=== PATIENT | male | born 1955 | race American Indian/Alaskan Native ===

== ENCOUNTER 2017-07-25 07:25 | Emergency (ER) | payer SELFPAY ==
[2017-07-25] MEDS ORDERED: ADRENALIN ONE (07:30)
[2017-07-25] MEDS ORDERED: ATROPINE 0.1% (CARDIAC) ONE (07:30)
[2017-07-25] MEDS ORDERED: SODIUM BICARBONATE IV ONE (07:30)
--- NOTE | 2017-07-25 07:34 | Emergency Department Report ---
ED CPR HPI - General Stated Complaint: CARDIAC ARREST Time Seen by Provider: 07/25/17 07:30 - History of Present Illness Initial Comments: Patient is a 61-year-old -[place]ian male with unknown past medical history who is presenting in cardiac arrest. Patient called 911 after the patient collapsed at home. It is unknown at this time whether the patient has shortness of breath chest pain. The patient's told paramedics that he walked to the bathroom and then collapsed after getting back to the room. Patient did receive 3 rounds of epinephrine and was defibrillated once in the field. Patient had a Combitube placed for ventilation. Approximate time receiving ACLS 20 minutes Complaint: collapsed during activity Shock Advised: Yes Number of Shocks Delivered: 1 Initial Findings in the Field: unresponsive, systole ED Review of Systems ROS: Stated complaint: CARDIAC ARREST Other details as noted in HPI Comment: Unobtainable due to pts medical conditions ED Physical Exam - General General appearance: obtunded - Head Head exam: Present: atraumatic, normocephalic - Eye Eye exam: Present: other (pupils fixed and dilated) - ENT ENT exam: Present: mucous membranes moist - Neck Neck exam: Present: normal inspection - Respiratory Respiratory exam: Present: other (no spontaneous respirations. There is [place] blood in the airway) - Cardiovascular Cardiovascular Exam: Present: other (no spontaneous heart tones). Absent: systolic murmur, diastolic murmur, rubs, gallop - GI/Abdominal GI/Abdominal exam: Present: soft, distended - Rectal Rectal exam: Present: deferred - Extremities Exam Extremities exam: Present: normal inspection - Back Exam Back exam: Present: normal inspection - Skin Skin exam: Present: dry, intact, pallor. Absent: rash - Intubation Time Out Performed: No Sedative: none Laryngoscope: Angely Size: 3 ET Tube Size: 8 Tube Secured Depth (cm): 24 Tube Secured Location: lips Tube Placement Confirmation: visualized tube passing t, equal breath sounds bilat, no breath sounds over epi, confirmation by capnometr Patient Tolerated Procedure: well ED Medical Decision Making - Medical Decision Making Please see code sheet from nursing documentation. Patient is a 61-year-old -Armenian male with approximately 20 minute downtime in the field. Patient received several more doses of epinephrine and atropine and bicarbonate. Patient is, to switch to her endotracheal tube. Patient at [id number] Critical care attestation.: If time is entered above; I have spent that time in minutes in the direct care of this critically ill patient, excluding procedure time. ED Disposition Clinical Impression: Cardiopulmonary arrest Disposition: DC-20 Is pt being admited?: No Does the pt Need Aspirin: No Condition: Undetermined
== END 2017-07-25 11:15 ==
LOC: EDBD 07:25 → ED 07:25
DX: I46.9 Cardiac arrest, cause unspecified (principal)
CPT/HCPCS: 31500; 92950; 99285; J0171; J0461